=== PATIENT | female | born 1945 ===

== ENCOUNTER 2021-04-18 10:15 | Inpatient (IN) | payer OTHER ==
[~2021-04-18] VITALS: Ht 160 cm; Wt 61.7 kg
[2021-04-21] MEDS ORDERED: ALENDRONATE SOD70 MG PO (12:05)
[2021-04-21] MEDS ORDERED: SIMVASTA PO (12:05)
[2021-04-21] MEDS ORDERED: VITAMIN D310 MCG/1 M PO (12:06)
[2021-04-21] MEDS ORDERED: CENTRUM ADULTS1 EACH PO (12:07)
[2021-04-21] MEDS ORDERED: MAGNESIUM PO (12:07)
[2021-04-21] MEDS ORDERED: PROBIOTIC PO (12:08)
[2021-04-21] MEDS ORDERED: LISINOPRIL10 MG PO (15:08)
[2021-04-25] MEDS ORDERED: MAGNESIUM400 M1 PO (10:00)
[2021-04-25] MEDS ORDERED: SIMVASTATIN10 MG PO (10:00)
[2021-04-25] MEDS ORDERED: PROBIOTIC1 EAC2 PO (10:00)
== END 2021-04-26 14:38 | disposition home or self-care (01) | DRG 330 ==
LOC: O/R 04-25 05:51 → SURH 04-25 05:51
PROVIDERS: ADMIT Colon & Rectal Surgery; ATTEND Colon & Rectal Surgery
PROC: 0DS Gastrointestinal System, Reposition (ICD-10-PCS; principal; 2021-04-25 07:00)
DX: K62.3 Rectal prolapse (principal); K62.5 Hemorrhage of anus and rectum; R15.9 Full incontinence of feces

== ENCOUNTER 2021-09-08 15:18 | Inpatient (IN) | payer OTHER ==
[~2021-09-08 15:18] MED LIST: ALENDRONATE SOD70 MG PO; CENTRUM ADULTS1 EACH PO; LISINOPRIL10 MG PO; MAGNESIUM PO; MAGNESIUM400 M1 PO; PROBIOTIC PO; PROBIOTIC1 EAC2 PO; SIMVASTA PO; SIMVASTATIN10 MG PO; VITAMIN D310 MCG/1 M PO
== END 2021-09-16 20:19 | disposition home or self-care (01) | DRG 331 ==
LOC: SURH 09-11 09:45 → O/R 09-12 16:10 → SURH 09-12 18:41
PROVIDERS: ADMIT Colon & Rectal Surgery; ATTEND Colon & Rectal Surgery
PROC: 3E0F7SF Introduction of Other Gas into Respiratory Tract, Via Natural or Artificial Opening (ICD-10-PCS; 2021-09-12)
PROC: 0DQP4ZZ Repair Rectum, Percutaneous Endoscopic Approach (ICD-10-PCS; principal; 2021-09-12 09:45)
DX: K62.3 Rectal prolapse (principal); I10 Essential (primary) hypertension; E78.00 Pure hypercholesterolemia, unspecified; M81.0 Age-related osteoporosis without current pathological fracture